=== PATIENT | male | born 1985 | race Caucasian/White ===

== ENCOUNTER 2021-01-03 07:46 | Emergency (ER) | payer MEDICAID ==
[~2021-01-03] VITALS: Ht 182.9 cm; Wt 77.3 kg
[~2021-01-03 07:46] MED LIST: DIVA500T2 PO; Risperdal PO
[2021-01-03 08:18] LABS: BASOPHILS % (AUTO) 0.5 % (0-1); EOSINOPHILS # (AUTO) 0.1 X10'3 (0-0.9); EOSINOPHILS % (AUTO) 1.8 % (0-6); HEMATOCRIT 37.5 % (42.0-52.0); HEMOGLOBIN 12.5 g/dl (14.0-17.9); LYMPHOCYTES # (AUTO) 1.6 X10'3 (1.1-4.8); LYMPHOCYTES % (AUTO) 31.9 % (21-51); MEAN CORPUSCULAR HEMOGLOBIN 30.4 PG (27.0-31.0); MEAN CORPUSCULAR HGB CONC 33.2 g/dL (33.0-36.5); MEAN CORPUSCULAR VOLUME 91.3 FL (78-98); MEAN PLATELET VOLUME 8.8 FL (7.4-10.4); MONOCYTES # (AUTO) 0.7 X10'3 (0-0.9); MONOCYTES % (AUTO) 14.3 % (2-12); NEUTROPHILS # (AUTO) 2.7 X10'3 (1.8-7.7); NEUTROPHILS % (AUTO) 51.5 % (42-75); PLATELET COUNT 242 X10'3 (140-440); RED BLOOD COUNT 4.11 X10'6 (4.70-6.10); RED CELL DISTRIBUTION WIDTH 13.4 % (11.5-14.5); WHITE BLOOD COUNT 5.2 X10'3 (4.5-11.0)
[2021-01-03 08:41] LABS: ALANINE AMINOTRANSFERASE 19 U/L (12-78); ALBUMIN 3.2 G/DL (3.4-5.0); ALBUMIN/GLOBULIN RATIO 0.9 (1.1-1.5); ALKALINE PHOSPHATASE 75 IU/L (46-116); ANION GAP 8 (8-16); ASPARTATE AMINO TRANSFERASE 19 U/L (10-37); BILIRUBIN,TOTAL 0.4 MG/DL (0.1-1.0); BLOOD UREA NITROGEN 28 MG/DL (7-18); BUN/CREATININE RATIO 28.6 (5.4-32.0); CHLORIDE 109 MMOL/L (99-107); CREATININE 0.98 MG/DL (0.60-1.10); GLUCOSE 115 MG/DL (70-104); POTASSIUM 3.7 MMOL/L (3.5-5.1); SODIUM 141 MMOL/L (135-145); TOTAL CARBON DIOXIDE 23.8 MMOL/L (24-32); TOTAL PROTEIN 6.7 G/DL (6.4-8.2); eGFR 86 ML/MIN
[2021-01-03 09:50] LABS: D-DIMER < 0.19 MG/L FEU (0-0.50)
[2021-01-03 10:46] VITALS: BP 100/53
== END 2021-01-03 10:48 | disposition home or self-care (01) ==
LOC: ER 07:47
DX: R00.2 Palpitations (principal); I48.91 Unspecified atrial fibrillation; G43.909 Migraine, unspecified, not intractable, without status migrainosus; J44.9 Chronic obstructive pulmonary disease, unspecified; F12.90 Cannabis use, unspecified, uncomplicated; F15.90 Other stimulant use, unspecified, uncomplicated; Z87.891 Personal history of nicotine dependence; Z88.0 Allergy status to penicillin; Z88.8 Allergy status to other drugs, medicaments and biological substances; Z79.899 Other long term (current) drug therapy
CPT/HCPCS: 36415; 71045; 80053; 83880; 84484; 85025; 85379; 93005; 99285

== ENCOUNTER 2021-01-06 19:12 | Emergency (ER) | payer MEDICAID ==
[~2021-01-06] VITALS: Ht 182.9 cm; Wt 78.0 kg
[2021-01-06] MEDS ORDERED: normal saline 1000ml 1,000 ML IV ONE ×2 (19:45→21:30)
[2021-01-06 20:03] LABS: ALANINE AMINOTRANSFERASE 22 U/L (12-78); ALBUMIN 3.3 G/DL (3.4-5.0); ALBUMIN/GLOBULIN RATIO 0.9 (1.1-1.5); ALKALINE PHOSPHATASE 68 IU/L (46-116); ANION GAP 8 (8-16); ASPARTATE AMINO TRANSFERASE 22 U/L (10-37); BASOPHILS % (AUTO) 0.1 % (0-1); BILIRUBIN,TOTAL 0.3 MG/DL (0.1-1.0); BLOOD UREA NITROGEN 24 MG/DL (7-18); CALCIUM 8.2 MG/DL (8.5-10.1); CHLORIDE 109 MMOL/L (99-107); EOSINOPHILS # (AUTO) 0.1 X10'3 (0-0.9); EOSINOPHILS % (AUTO) 1.2 % (0-6); GLUCOSE 94 MG/DL (70-104); HEMATOCRIT 36.2 % (42.0-52.0); HEMOGLOBIN 12.1 g/dl (14.0-17.9); LYMPHOCYTES # (AUTO) 2.2 X10'3 (1.1-4.8); LYMPHOCYTES % (AUTO) 34.2 % (21-51); MEAN CORPUSCULAR HEMOGLOBIN 30.3 PG (27.0-31.0); MEAN CORPUSCULAR HGB CONC 33.3 g/dL (33.0-36.5); MEAN CORPUSCULAR VOLUME 91.1 FL (78-98); MEAN PLATELET VOLUME 8.6 FL (7.4-10.4); MONOCYTES # (AUTO) 0.8 X10'3 (0-0.9); MONOCYTES % (AUTO) 11.6 % (2-12); NEUTROPHILS # (AUTO) 3.4 X10'3 (1.8-7.7); NEUTROPHILS % (AUTO) 52.9 % (42-75); PLATELET COUNT 267 X10'3 (140-440); POTASSIUM 3.7 MMOL/L (3.5-5.1); RED BLOOD COUNT 3.98 X10'6 (4.70-6.10); RED CELL DISTRIBUTION WIDTH 13.1 % (11.5-14.5); SODIUM 143 MMOL/L (135-145); TOTAL CARBON DIOXIDE 26.5 MMOL/L (24-32); TOTAL PROTEIN 6.9 G/DL (6.4-8.2); WHITE BLOOD COUNT 6.5 X10'3 (4.5-11.0); eGFR 68 ML/MIN
[2021-01-06 20:06] LABS: TROPONIN I < 0.04 NG/ML (0.0-0.05)
[2021-01-06 21:23] LABS: CLARITY,URINE SLIGHTLY CLOUDY (Clear); COLOR,URINE YELLOW (Yellow); GLUCOSE, URINE NEGATIVE (Neg); KETONES,URINE NEGATIVE (Neg); LEUKOCYTE ESTERASE ,URINE NEGATIVE (Neg); NITRITES, URINE NEGATIVE (Neg); OCCULT BLOOD,URINE NEGATIVE (Neg); PROTEIN,URINE NEGATIVE (Neg); UROBILINOGEN,URINE 0.2 E.U/dL (0.2-1.0)
[2021-01-06] MEDS ORDERED: normal saline 1000ML IV soln IVB ONE (21:25)
[2021-01-06 21:27] LABS: UA COLLECTION TYPE CLN CATCH MIDSTREAM
[2021-01-06] MEDS ORDERED: divalproex 250mg tablet, delayed-release PO ONE (21:30)
[2021-01-06] MEDS ORDERED: ketorolac tromethamine 15mg/ml inj. IV ONE (21:30)
[2021-01-06] MEDS ORDERED: DIVA500T2 PO (21:31)
[2021-01-06 21:47] LABS: CREATINE KINASE 416 U/L (39-308)
[2021-01-06 21:59] LABS: WBC,URINE 0-4 /HPF (0-4)
[2021-01-06 22:00] LABS: BACTERIA,URINE NONE SEEN /HPF (Neg); RBC,URINE NONE SEEN /HPF (0-2); SQUAMOUS EPITHELIAL CELL,UR NONE SEEN /LPF (FEW)
[2021-01-06 22:02] VITALS: BP 134/76
== END 2021-01-06 22:03 | disposition home or self-care (01) ==
LOC: ER 19:13
DX: T67.5XXA Heat exhaustion, unspecified, initial encounter (principal); R61 Generalized hyperhidrosis; R00.2 Palpitations; R07.89 Other chest pain; E86.0 Dehydration; R42 Dizziness and giddiness; I48.91 Unspecified atrial fibrillation; J44.9 Chronic obstructive pulmonary disease, unspecified; F31.9 Bipolar disorder, unspecified; F17.200 Nicotine dependence, unspecified, uncomplicated; F12.90 Cannabis use, unspecified, uncomplicated; F15.90 Other stimulant use, unspecified, uncomplicated; Z76.0 Encounter for issue of repeat prescription; Z86.69 Personal history of other diseases of the nervous system and sense organs; Z72.89 Other problems related to lifestyle; Z59.0 Homelessness; Z88.0 Allergy status to penicillin; Z88.8 Allergy status to other drugs, medicaments and biological substances; Z79.899 Other long term (current) drug therapy; X30.XXXA Exposure to excessive natural heat, initial encounter; Y93.89 Activity, other specified; Y92.89 Other specified places as the place of occurrence of the external cause; Y99.8 Other external cause status
CPT/HCPCS: 36415; 80053; 81001; 82550; 82948; 83874; 84484; 85025; 93005; 96361; 96374; 99284; J1885; J7030

== ENCOUNTER → 2021-01-19 | Emergency (ER) | payer MEDICAID | END | disposition left against medical advice (07) | LOC: ER 21:46 | DX: R53.83 Other fatigue (principal); Z53.21 Procedure and treatment not carried out due to patient leaving prior to being seen by health care provider ==

== ENCOUNTER 2021-01-23 08:03 | Emergency (ER) | payer MEDICAID ==
[~2021-01-23] VITALS: Ht 182.9 cm; Wt 81.8 kg
[2021-01-23] MEDS ORDERED: TETanus/Pertussis (Acell)/Diphther VAC/PF (Tdap-Adult) 0.5ml syringe IMVAC ONE (08:20)
[2021-01-23] MEDS ORDERED: ONDA4TAB6 PO (08:40)
[2021-01-23] MEDS ORDERED: LIDOcaine 1% W/epiNEPHrine 1:200,000 10ml vial IJ ONE (08:50)
[2021-01-23 10:18] VITALS: BP 120/85
== END 2021-01-23 10:24 | disposition home or self-care (01) ==
LOC: ER 08:03
DX: S06.0X0A Concussion without loss of consciousness, initial encounter (principal); S01.511A Laceration without foreign body of lip, initial encounter; G40.909 Epilepsy, unspecified, not intractable, without status epilepticus; I48.91 Unspecified atrial fibrillation; J44.9 Chronic obstructive pulmonary disease, unspecified; F12.90 Cannabis use, unspecified, uncomplicated; F15.90 Other stimulant use, unspecified, uncomplicated; Z59.0 Homelessness; Z72.89 Other problems related to lifestyle; Z88.0 Allergy status to penicillin; Z88.8 Allergy status to other drugs, medicaments and biological substances; Y04.2XXA Assault by strike against or bumped into by another person, initial encounter; Y93.89 Activity, other specified; Y92.89 Other specified places as the place of occurrence of the external cause; Y99.8 Other external cause status
CPT/HCPCS: 12011; 70450; 70486; 90471; 90715; 99285

== ENCOUNTER 2021-02-14 14:52 | Emergency (ER) | payer MEDICAID ==
[~2021-02-14] VITALS: Ht 182.9 cm; Wt 77.0 kg
[~2021-02-14 14:52] MED LIST changes: +ONDA4TAB6 PO
--- NOTE | 2021-02-14 19:05 | NUR ---
Patient brought to ER overflow. Awaiting orders.
--- NOTE | 2021-02-14 19:56 | NUR ---
Patient placed on 179. Lab with patient at this time. Urine sample to lab.
[2021-02-14 20:02] LABS: CLARITY,URINE CLEAR (Clear); COLOR,URINE YELLOW (Yellow); GLUCOSE, URINE NEGATIVE (Neg); KETONES,URINE NEGATIVE (Neg); LEUKOCYTE ESTERASE ,URINE NEGATIVE (Neg); NITRITES, URINE NEGATIVE (Neg); OCCULT BLOOD,URINE NEGATIVE (Neg); PH,URINE 5.5 (4.8-8.0); PROTEIN,URINE NEGATIVE (Neg); UA COLLECTION TYPE CLN CATCH MIDSTREAM; UROBILINOGEN,URINE 0.2 E.U/dL (0.2-1.0)
[2021-02-14 20:07] LABS: URINE AMPHETAMINE SCREEN POSITIVE (Neg); URINE BARBITUATE SCREEN NEGATIVE (Neg); URINE BENZODIAZEPINES SCREEN NEGATIVE (Neg); URINE CANNABINOID SCREEN NEGATIVE (Neg); URINE COCAINE SCREEN NEGATIVE (Neg); URINE METHADONE SCREEN NEGATIVE (Neg); URINE OPIATE SCREEN NEGATIVE (Neg); URINE PHENCYCLIDINE SCREEN NEGATIVE (Neg)
[2021-02-14 20:16] LABS: BASOPHILS % (AUTO) 0.6 % (0-1); EOSINOPHILS # (AUTO) 0.2 X10'3 (0-0.9); HEMATOCRIT 41.6 % (42.0-52.0); HEMOGLOBIN 13.8 g/dl (14.0-17.9); LYMPHOCYTES # (AUTO) 2.5 X10'3 (1.1-4.8); LYMPHOCYTES % (AUTO) 37.3 % (21-51); MEAN CORPUSCULAR HEMOGLOBIN 29.8 PG (27.0-31.0); MEAN CORPUSCULAR HGB CONC 33.1 g/dL (33.0-36.5); MEAN CORPUSCULAR VOLUME 89.8 FL (78-98); MEAN PLATELET VOLUME 8.4 FL (7.4-10.4); MONOCYTES # (AUTO) 0.9 X10'3 (0-0.9); NEUTROPHILS % (AUTO) 45.1 % (42-75); PLATELET COUNT 279 X10'3 (140-440); RED BLOOD COUNT 4.63 X10'6 (4.70-6.10); RED CELL DISTRIBUTION WIDTH 13.5 % (11.5-14.5); WHITE BLOOD COUNT 6.7 X10'3 (4.5-11.0)
[2021-02-14 20:26] LABS: ALANINE AMINOTRANSFERASE 39 U/L (12-78); ALBUMIN 3.7 G/DL (3.4-5.0); ALBUMIN/GLOBULIN RATIO 0.9 (1.1-1.5); ALKALINE PHOSPHATASE 75 IU/L (46-116); ANION GAP 6 (8-16); ASPARTATE AMINO TRANSFERASE 37 U/L (10-37); BILIRUBIN,TOTAL 0.4 MG/DL (0.1-1.0); BLOOD UREA NITROGEN 29 MG/DL (7-18); BUN/CREATININE RATIO 26.1 (5.4-32.0); CALCIUM 8.3 MG/DL (8.5-10.1); CHLORIDE 104 MMOL/L (99-107); CREATININE 1.11 MG/DL (0.60-1.10); GLUCOSE 95 MG/DL (70-104); POTASSIUM 4.3 MMOL/L (3.5-5.1); SODIUM 139 MMOL/L (135-145); TOTAL CARBON DIOXIDE 28.7 MMOL/L (24-32); TOTAL PROTEIN 7.6 G/DL (6.4-8.2); eGFR 75 ML/MIN
--- NOTE | 2021-02-14 20:35 | NUR ---
Patient appears asleep on his left side. Resp. even and unlabored. No s/s of distress.
[2021-02-14 20:36] LABS: ETHANOL < 0.010 GM/DL (0.0-0.010)
--- NOTE | 2021-02-14 22:39 | NUR ---
Woke patient for rapid PCR test. Completed and sent to lab. Patient back to sleep.
[2021-02-14] MEDS ORDERED: RISP3TAB11 PO (22:58)
[2021-02-14] MEDS ORDERED: DIVA500T28 PO (23:06)
[2021-02-14] MEDS ORDERED: ONDA4TAB6 PO (23:08)
--- NOTE | 2021-02-15 00:59 | NUR ---
patients chart faxed to [facility]
--- NOTE | 2021-02-15 01:14 | NUR ---
Patient sleeping in supine position. rr 16 and unlabored. No s/s of distress.
[2021-02-15] MEDS: ondansetron 4mg rapidly disintigrating tab PO SCH ×4 (02:00→20:00)
--- NOTE | 2021-02-15 02:56 | NUR ---
Patient continues to sleep on his right side. Resp. even. No s/s of distress.
--- NOTE | 2021-02-15 05:13 | NUR ---
Patient is asleep on his left side. Resp. even and unlabored.
--- NOTE | 2021-02-15 06:39 | NUR ---
Patient sleeping on the right side. No distress observed. Continue to monitor.
--- NOTE | 2021-02-15 08:15 | NUR ---
RN awoke patient for breakfast. Patient looked at breakfast and then went back to sleep. Continue to monitor.
--- NOTE | 2021-02-15 10:05 | NUR ---
Patient continues to sleep. No distress observed. Continue to monitor.
--- NOTE | 2021-02-15 11:05 | NUR ---
[facility], evaluating patient. Patient stating he was fired from [employer] and feeling suicidal. Patient wants to get some drugs to kill himself. Continue to monitor.
--- NOTE | 2021-02-15 12:55 | NUR ---
Patient eating lunch. No distress observed. Continue to monitor.
--- NOTE | 2021-02-15 15:08 | NUR ---
Patient sleeping. No distress observed. Continue to monitor.
--- NOTE | 2021-02-15 16:58 | NUR ---
Patient sleeping. No distress observed. Continue to monitor.
--- NOTE | 2021-02-15 18:59 | NUR ---
pt laying in bed. dinner tray given to pt who states he will eat in a little bit
[2021-02-15] MEDS: divalproex sodium 500mg tablet.DR PO SCH (20:22)
[2021-02-15] MEDS: risperiDONE 0.5mg tablet PO SCH (20:22)
[2021-02-15] MEDS: risperiDONE 2mg tablet PO SCH (20:23)
--- NOTE | 2021-02-15 21:15 | NUR ---
During 1:1 bedside assessment, pt endorses suicidal ideation with no current plan. Denies SH/HI/AVH. Refused the odt zofran. pt spent most of night laying in bed. spoke with his friend Tabby on the phone this evening and seemed in good spirits afterwards. 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 reports his day was "fine" and is just waiting for placement. ate full meal tray and reports normal bowel movements. denies any further quetsions or concerns at this time.
--- NOTE | 2021-02-16 00:20 | NUR ---
pt appears to be sleeping
[2021-02-16] MEDS: ondansetron 4mg rapidly disintigrating tab PO SCH ×4 (01:57→20:00)
--- NOTE | 2021-02-16 02:43 | NUR ---
pt appears to be sleeping
--- NOTE | 2021-02-16 04:43 | NUR ---
pt appears to be sleeping
--- NOTE | 2021-02-16 13:00 | NUR ---
PT SITTING UP IN BED EATING LUNCH AND ASKED, "WHEN AM I GOING TO GET PLACED" DONT KNOW [facility]ENT HEARD ANYTHING YET. PT COOPERATIVE WITH CARE, PLEASANT IN MANNER.
--- NOTE | 2021-02-16 13:02 | NUR ---
pt has been sleeping all day
--- NOTE | 2021-02-16 13:32 | NUR ---
PT WITH RED RASH/HIVES TO R AC AREA OF ARM. DENIES OTHER SYMPTOMS. STATES "IT STARTED A BIT AGO. ITS ITCHY." DENIES ALLERGIES TO FOOD.
--- NOTE | 2021-02-16 13:33 | NUR ---
DR HUTCHINSON NOTIFIED OF HIVES, WILL GIVE PO BENADRYL AND WATCH PER .
[2021-02-16] MEDS ORDERED: diphenhydrAMINE 25mg capsule PO ONE (13:35)
--- NOTE | 2021-02-16 14:20 | NUR ---
SAMUEL FROM [facility] AT SIDE OF BED, TALKING WITH PT. COMMUNICATING WELL WITH SAMUEL. PT WAS GETTING A LITTLE AGITATED WHEN SHE ASKED TO GO OUTSIDE AND WAS TOLD NOT ALLOWED. WE REMOVED OUR SELF FROM SITUATION. PT CALMED DOWN ON OWN. PUTTING LOTION ON HER ARMS AND BRUSHING HER HAIR.
--- NOTE | 2021-02-16 15:06 | NUR ---
[facility] FROM [facility] [place] CALLED AND REPORT GIVEN FOR POSSIBLE PLACEMENT.
--- NOTE | 2021-02-16 15:08 | NUR ---
SKIN CHECKED FOR ANY SORES AND OPEN AREA. SKIN C,D & I. COOPERATIVE WITH CARE. NO OUTBURST, NO AGITATION.
[2021-02-16] MEDS: divalproex sodium 500mg tablet.DR PO SCH (20:57)
[2021-02-16] MEDS: risperiDONE 0.5mg tablet PO SCH (20:58)
[2021-02-16] MEDS: risperiDONE 2mg tablet PO SCH (20:58)
[2021-02-17] MEDS: ondansetron 4mg rapidly disintigrating tab PO SCH ×2 (02:00→09:06)
[2021-02-17 06:19] VITALS: BP 95/69
--- NOTE | 2021-02-17 11:05 | NUR ---
[facility] JUST CALLED AND WILL HAVE RES HABILITATION ASSISTANT HERE IN 10 MIN TO 15 MIN. PT TO BE TRANSFERRED TO [facility]
--- NOTE | 2021-02-17 11:11 | NUR ---
NURSE TO NURSE REPORT CALLED TO [phone] PT TO BE PICKED UP BY [facility] SOON
== END 2021-02-17 12:01 ==
LOC: ER 14:52
DX: F31.9 Bipolar disorder, unspecified (principal); Z20.822 Contact with and (suspected) exposure to COVID-19; R45.851 Suicidal ideations; I48.91 Unspecified atrial fibrillation; J44.9 Chronic obstructive pulmonary disease, unspecified; F12.90 Cannabis use, unspecified, uncomplicated; F15.90 Other stimulant use, unspecified, uncomplicated; Z59.0 Homelessness; Z88.0 Allergy status to penicillin; Z79.899 Other long term (current) drug therapy
CPT/HCPCS: 36415; 80053; 80305; 80320; 81003; 84443; 85025; 87635; 99285; C9803

== ENCOUNTER 2021-03-03 22:56 | Emergency (ER) | payer MEDICAID ==
[~2021-03-03] VITALS: Ht 182.9 cm; Wt 85.0 kg
[~2021-03-03 22:56] MED LIST changes: -DIVA500T2 PO; +DIVA500T28 PO; +RISP3TAB11 PO; -Risperdal PO
[2021-03-03 23:10] VITALS: BP 144/83
[2021-03-04 00:07] LABS: BASOPHILS % (AUTO) 0.5 % (0-1); EOSINOPHILS # (AUTO) 0.3 X10'3 (0-0.9); EOSINOPHILS % (AUTO) 3.4 % (0-6); HEMATOCRIT 37.6 % (42.0-52.0); HEMOGLOBIN 12.7 g/dl (14.0-17.9); LYMPHOCYTES # (AUTO) 2.7 X10'3 (1.1-4.8); MEAN CORPUSCULAR HEMOGLOBIN 30.3 PG (27.0-31.0); MEAN CORPUSCULAR HGB CONC 33.8 g/dL (33.0-36.5); MEAN CORPUSCULAR VOLUME 89.6 FL (78-98); MEAN PLATELET VOLUME 9.2 FL (7.4-10.4); MONOCYTES % (AUTO) 12.8 % (2-12); NEUTROPHILS # (AUTO) 3.5 X10'3 (1.8-7.7); NEUTROPHILS % (AUTO) 47.3 % (42-75); PLATELET COUNT 240 X10'3 (140-440); RED BLOOD COUNT 4.19 X10'6 (4.70-6.10); RED CELL DISTRIBUTION WIDTH 13.6 % (11.5-14.5); WHITE BLOOD COUNT 7.5 X10'3 (4.5-11.0)
[2021-03-04 01:16] LABS: ALANINE AMINOTRANSFERASE 27 U/L (12-78); ALBUMIN 3.5 G/DL (3.4-5.0); ALKALINE PHOSPHATASE 86 IU/L (46-116); ANION GAP 10 (8-16); ASPARTATE AMINO TRANSFERASE 20 U/L (10-37); BILIRUBIN,TOTAL 0.3 MG/DL (0.1-1.0); BLOOD UREA NITROGEN 25 MG/DL (7-18); BUN/CREATININE RATIO 25.8 (5.4-32.0); CALCIUM 8.3 MG/DL (8.5-10.1); CHLORIDE 105 MMOL/L (99-107); CREATININE 0.97 MG/DL (0.60-1.10); GLUCOSE 92 MG/DL (70-104); POTASSIUM 3.8 MMOL/L (3.5-5.1); SODIUM 141 MMOL/L (135-145); eGFR 87 ML/MIN
[2021-03-04 01:24] LABS: MAGNESIUM 1.9 MG/DL (1.5-2.4); TROPONIN I < 0.04 NG/ML (0.0-0.05)
== END 2021-03-04 02:25 | disposition home or self-care (01) ==
LOC: ER 22:57
DX: R07.89 Other chest pain (principal); R06.02 Shortness of breath; R00.2 Palpitations; G40.909 Epilepsy, unspecified, not intractable, without status epilepticus; I48.91 Unspecified atrial fibrillation; J44.9 Chronic obstructive pulmonary disease, unspecified; F12.90 Cannabis use, unspecified, uncomplicated; F15.90 Other stimulant use, unspecified, uncomplicated; Z59.0 Homelessness; Z88.0 Allergy status to penicillin; Z88.8 Allergy status to other drugs, medicaments and biological substances; Z79.899 Other long term (current) drug therapy
CPT/HCPCS: 36415; 71045; 80053; 83735; 83880; 84484; 85025; 93005; 99285

== ENCOUNTER 2021-03-11 13:12 | Emergency (ER) | payer MEDICAID ==
[~2021-03-11] VITALS: Ht 177.8 cm; Wt 87.5 kg
[2021-03-11 13:21] VITALS: BP 118/71
[2021-03-11 13:54] LABS: BASOPHILS % (AUTO) 0.6 % (0-1); EOSINOPHILS # (AUTO) 0.1 X10'3 (0-0.9); EOSINOPHILS % (AUTO) 2.7 % (0-6); HEMATOCRIT 41.5 % (42.0-52.0); HEMOGLOBIN 13.6 g/dl (14.0-17.9); LYMPHOCYTES # (AUTO) 1.8 X10'3 (1.1-4.8); MEAN CORPUSCULAR HEMOGLOBIN 29.7 PG (27.0-31.0); MEAN CORPUSCULAR HGB CONC 32.7 g/dL (33.0-36.5); MEAN CORPUSCULAR VOLUME 90.8 FL (78-98); MEAN PLATELET VOLUME 8.1 FL (7.4-10.4); MONOCYTES # (AUTO) 0.6 X10'3 (0-0.9); MONOCYTES % (AUTO) 12.4 % (2-12); NEUTROPHILS # (AUTO) 2.5 X10'3 (1.8-7.7); NEUTROPHILS % (AUTO) 49.3 % (42-75); PLATELET COUNT 271 X10'3 (140-440); RED BLOOD COUNT 4.57 X10'6 (4.70-6.10); RED CELL DISTRIBUTION WIDTH 13.4 % (11.5-14.5); WHITE BLOOD COUNT 5.1 X10'3 (4.5-11.0)
[2021-03-11 14:10] LABS: ALANINE AMINOTRANSFERASE 27 U/L (12-78); ALBUMIN 3.6 G/DL (3.4-5.0); ALBUMIN/GLOBULIN RATIO 0.9 (1.1-1.5); ALKALINE PHOSPHATASE 76 IU/L (46-116); ANION GAP 3 (8-16); ASPARTATE AMINO TRANSFERASE 18 U/L (10-37); BILIRUBIN,TOTAL 0.2 MG/DL (0.1-1.0); BLOOD UREA NITROGEN 20 MG/DL (7-18); BUN/CREATININE RATIO 20.4 (5.4-32.0); CALCIUM 8.7 MG/DL (8.5-10.1); CHLORIDE 104 MMOL/L (99-107); CREATININE 0.98 MG/DL (0.60-1.10); GLUCOSE 94 MG/DL (70-104); SODIUM 138 MMOL/L (135-145); TOTAL CARBON DIOXIDE 30.9 MMOL/L (24-32); TOTAL PROTEIN 7.5 G/DL (6.4-8.2); eGFR 86 ML/MIN
[2021-03-11 14:19] LABS: ETHANOL < 0.010 GM/DL (0.0-0.010)
[2021-03-11 16:17] LABS: URINE AMPHETAMINE SCREEN NEGATIVE (Neg); URINE BARBITUATE SCREEN NEGATIVE (Neg); URINE BENZODIAZEPINES SCREEN NEGATIVE (Neg); URINE CANNABINOID SCREEN NEGATIVE (Neg); URINE COCAINE SCREEN NEGATIVE (Neg); URINE METHADONE SCREEN NEGATIVE (Neg); URINE OPIATE SCREEN NEGATIVE (Neg); URINE PHENCYCLIDINE SCREEN NEGATIVE (Neg)
--- NOTE | 2021-03-11 22:32 | NUR ---
PATIENT RESTING ON RIGHT SIDE, NO NEEDS AT THIS TIME.
--- NOTE | 2021-03-12 04:20 | NUR ---
PATIENT'S PACKET WAS SENT TO [facility].
--- NOTE | 2021-03-12 11:30 | NUR ---
PATIENT MOVED TO ER BED #18.
--- NOTE | 2021-03-12 12:30 | NUR ---
Patient resting comfortably with eyes closed on gurney.
--- NOTE | 2021-03-12 13:30 | NUR ---
Patient resting comfortably and in no apparent distress. No needs at this time.
--- NOTE | 2021-03-12 14:30 | NUR ---
No needs at this time. Patient resting with eyes closed.
--- NOTE | 2021-03-12 16:07 | NUR ---
Called [facility] office patient it be evaluated today.
--- NOTE | 2021-03-12 16:15 | NUR ---
Patient states that he feels better and he was like to go help his mother with arrangements. Patient has a plan to go to the [employer] and then will be getting a ride to mothers house.
--- NOTE | 2021-03-12 16:51 | NUR ---
[facility] AT BEDSIDE EVALUATING PT
== END 2021-03-12 17:35 | disposition home or self-care (01) ==
LOC: ER 13:13
DX: R45.851 Suicidal ideations (principal); I48.91 Unspecified atrial fibrillation; J44.9 Chronic obstructive pulmonary disease, unspecified; F31.9 Bipolar disorder, unspecified; F12.90 Cannabis use, unspecified, uncomplicated; F15.90 Other stimulant use, unspecified, uncomplicated; Z86.69 Personal history of other diseases of the nervous system and sense organs; Z72.89 Other problems related to lifestyle; Z56.0 Unemployment, unspecified; Z59.0 Homelessness; Z88.0 Allergy status to penicillin; Z88.8 Allergy status to other drugs, medicaments and biological substances; Z79.899 Other long term (current) drug therapy
CPT/HCPCS: 36415; 80053; 80305; 80320; 84443; 85025; 99285